=== PATIENT | male | born 1960 | race Caucasian/White ===

== ENCOUNTER 2019-03-23 08:39 | Day surgery (SDC) | payer BC ==
[2019-03-22 09:27] VITALS: BMI 37.5
[2019-03-23] MEDS ORDERED: BACITRACIN 15 GM TUBE TOPICAL OINTMENT ONE (10:57)
[2019-03-23] MEDS ORDERED: BUPIVACAINE HCL/PF 0.5% (5 MG/ML) 30 ML VIAL IJ ONE ×2 (10:57→10:58)
[2019-03-23] MEDS ORDERED: LIDOCAINE HCL 1%, 10 MG/ML (20ML VIAL) ONE (10:57)
[2019-03-23] MEDS ORDERED: MIDAZOLAM HCL 2 MG/2 ML SINGLE DOSE VIAL ONE ×2 (11:00→11:13)
[2019-03-23] MEDS ORDERED: PROPOFOL 20 ML ONE (11:12)
[2019-03-23] MEDS ORDERED: ceFAZolin SODIUM 1 GM VIAL ONE (11:12)
[2019-03-23] MEDS ORDERED: ceFAZolin SODIUM 1 GM VIAL IVPB ONE (11:14)
[2019-03-23] MEDS ORDERED: BACITRACIN 15 GM TUBE TOPICAL OINTMENT TP ONE (11:44)
[2019-03-23] MEDS ORDERED: oxyCODONE HCL 5 MG TABLET PO PRN (12:00)
[2019-03-23] MEDS ORDERED: DEXTROSE 5%-0.45% SALINE 1,000 ML IV SCH (12:00)
--- NOTE | 2019-03-23 12:02 | OP ---
Operative Note - Note: Operative Date: 03/23/19 Pre-Operative Diagnosis: left hydrocele Operation: left hydrocelectomy Findings: left hydrocele Post-Operative Diagnosis: Same as Pre-op Surgeon: Sandor Zhou Anesthesia: General Specimens Removed: hydrocele sac Operative Report Dictated: Yes
[2019-03-23] MEDS ORDERED: ONDANSETRON 4 MG/2 ML VIAL IVPUSH PRN (13:28)
[2019-03-23] MEDS ORDERED: ACETAMINOPHEN 1000 MG/100 ML VIAL (NON FORMULARY) IVPB ONE (13:30)
[2019-03-23] MEDS ORDERED: LACTATED RINGERS SOLUTION 1,000 ML IV SCH (13:30)
[2019-03-23] MEDS ORDERED: ACETAMINOPHEN INJECTION 100 ML IVPB ONE (13:35)
--- NOTE | 2019-03-23 14:26 | OP ---
DATE OF OPERATION: 03/23/2019 PREOPERATIVE DIAGNOSIS: Left hydrocele. POSTOPERATIVE DIAGNOSIS: Left hydrocele. PROCEDURE: Left hydrocelectomy. SURGEON: Sandor Zhou MD INDICATIONS: Patient is a 58-year-old male with a large left hydrocele. He was taken to the OR for hydrocelectomy. Risks, benefits, and alternatives were discussed including the risk of bleeding, infection, hematoma formation, recurrence of hydrocele. DESCRIPTION OF PROCEDURE: After informed consent was obtained, patient taken to the OR, placed supine on the operating table. Cardiac monitoring was administered. Spinal anesthetic was given. The scrotum was prepped and draped in standard surgical fashion. Approximately 4-cm left hemiscrotal incision was created with a No. 15-blade. The dartos layers were incised until tunica vaginalis was identified. The testicle with the tunica vaginalis was then delivered into the wound. The tunica vaginalis was excised and a large amount of clear yellow hydrocele fluid was drained. Hydrocele sac was then excised in its entirety and sent to pathology for analysis. The edges of the sac were then cauterized and everted. At this point then, the testicle was then placed back into its normal anatomic position in the scrotum. The dartos layer was reapproximated with interrupted chromic suture, and the skin was approximated with interrupted chromic suture in a vertical mattress fashion. Patient awoken from anesthesia and transferred to the recovery room in stable condition. There were no complications. Estimated blood loss was minimal. Robin [id number]
[2019-03-23 17:07] VITALS: BP 150/89; PULSE 70; TEMP 98.4
--- NOTE | 2019-03-29 15:50 | PATH ---
Surgical Pathology Report Patient Name: ANTONIO EMMANUEL [facility]. Rec. #: [id number] /Age/Gender: 1960 (Age: 58) / M Account: [id number] Location: [facility] SURGICAL Taken: 03/23/2019 Received: 03/23/2019 Reported: 03/29/2019 Physicians: Sandor Zhou M.D. Specimen(s) Received LEFT HYDROCELE SAC Clinical History Left hydrocele Final Diagnosis HYDROCELE SAC, LEFT, HYDROCELECTOMY: HYDROCELE. Electronically Signed Rosie Cheatham M.D. Gross Description Received in formalin, labeled "left hydrocele sac" is a portion of rogers membranous tissue measuring 13 x 5.5 x 0.1 cm. Foundation Drill Operator Helper sections submitted in one cassette. JOSE R/03/23/2019 paco/03/23/2019
== END 2019-03-23 16:55 | disposition home or self-care (01) ==
LOC: JASU-SURG 08:39
PROVIDERS: ATTEND Urology
PROC: 0VB70ZZ Excision of Left Tunica Vaginalis, Open Approach (ICD-10-PCS; principal; 2019-03-23 10:00)
DX: N43.3 Hydrocele, unspecified (principal)
CPT/HCPCS: 88304-TC; 94760; J0131

== ENCOUNTER 2019-06-04 08:05 | Inpatient (IN) | payer BC ==
[2019-06-04 08:14] VITALS: BMI 37.5
--- NOTE | 2019-06-04 09:02 | PDOC ---
History of Present Illness - General Chief Complaint: Respiratory Stated Complaint: SENT BY DR WILKINSON Time Seen by Provider: 06/04/19 08:46 - History of Present Illness Initial Comments: 06/04/19 08:57 58 yo M with h/o HTN, CAD s/p stents, GERD who p/w SOB, cough. Patient reports worsening, unremitting, dry, non-productive cough x 2 weeks, and now productive cough x 1-2 days, with brown sputum production. Patient also reports intermittent palpitations x 2 weeks, with no identifiable triggers. Endorses Sandoval x 2 weeks. Denies chest pain. Symptoms not improved with 5 days of Prednisone, and Augmentin x 5 days. Pt. evaluated urgent care facility 06/03/19 , with abnml CXR. Reports diffuse abdominal distension x 1 month, with unremarkable colonoscopy/endoscopy x 3 weeks. Reports night sweats x 1 week ago. Patient denies CARDOZA, vision change, wheezing, orthopena, PND, leg swelling/pain, N /V, F,C, CP, urinary complaints, hematuria, BPR, abdominal pain, diarrhea, constipation, lightheadedness, weakness, sensory changes. PMHx: as noted above. Patient f/w Cardiology/Dr. Luo. Denies h/o PE/ DVT. ROS: as noted SHx: Denies Etoh, IVDA, tobacco use Allergies: NKDA Past History - Past Medical History Allergies/Adverse Reactions: Allergies Allergy/AdvReac Type Severity Reaction Status Date / Time No Known Allergies Allergy Verified 06/04/19 08:14 Home Medications: Ambulatory Orders Aspirin [ASA -] 81 mg PO DAILY 03/22/19 Atorvastatin Ca [Lipitor] 20 mg PO HS 03/22/19 Isosorbide Mononitrate [Isosorbide Mononitrate ER] 60 mg PO DAILY 03/22/19 Losartan/Hydrochlorothiazide [Losartan-Hctz 100-25 mg Tab] 1 each PO DAILY 03/22 Metoprolol Succinate 100 mg PO DAILY 03/22/19 Pantoprazole Sodium 40 mg PO DAILY 03/22/19 Sertraline HCl 25 mg PO DAILY 03/22/19 Cardiac Disorders: Yes (CAD) COPD: No GI Disorders: Yes (reflux) HTN: Yes Hypercholesterolemia: (preventative) - Surgical History Cardiac Surgery: Yes (2 cardiac stent 2013) - Psycho Social/Smoking Cessation Hx Smoking History: Never smoked Have you smoked in the past 12 months: No Hx Alcohol Use: No Drug/Substance Use Hx: No Substance Use Type: None Hx Substance Use Treatment: No Review of Systems - Review of Systems Comments:: 06/04/19 09:06 GENERAL/CONSTITUTIONAL: No fever or chills. No weakness. HEAD, EYES, EARS, NOSE AND THROAT: No change in vision. No ear pain or discharge. No sore throat. CARDIOVASCULAR: + SOB. No chest pain. RESPIRATORY: + SOB, cough. No wheezing, or hemoptysis. GASTROINTESTINAL: No nausea, vomiting, diarrhea or constipation. GENITOURINARY: No dysuria, frequency, or change in urination. MUSCULOSKELETAL: No joint or muscle swelling or pain. No neck or back pain. SKIN: No rash NEUROLOGIC: No headache, vertigo, loss of consciousness, or change in strength/ sensation. ENDOCRINE: No increased thirst. No abnormal weight change HEMATOLOGIC/LYMPHATIC: No anemia, easy bleeding, or history of blood clots. ALLERGIC/IMMUNOLOGIC: No hives or skin allergy. *Physical Exam - Vital Signs Last Vital Signs Temp Pulse Resp BP Pulse Ox 97 F L 89 20 127/88 92 L 06/04/19 08:10 06/04/19 08:10 06/04/19 08:10 06/04/19 08:10 06/04/19 08:10 - Physical Exam Comments: 06/04/19 09:06 GENERAL: Awake, alert, and fully oriented, in no acute distress HEAD: No signs of trauma, normocephalic, atraumatic EYES: PERRLA, EOMI, sclera anicteric, conjunctiva clear ENT: Auricles normal inspection, hearing grossly normal, nares patent, oropharynx clear without exudates. Moist mucosa NECK: Normal ROM, supple, no lymphadenopathy, JVD, or masses LUNGS: No distress, speaks full sentences, clear to auscultation bilaterally HEART: Regular rate and rhythm, normal S1 and S2, no murmurs, rubs or gallops, peripheral pulses normal and equal bilaterally. ABDOMEN: Soft, nontender, normoactive bowel sounds. No guarding, no rebound. No masses EXTREMITIES : Normal inspection, Normal range of motion, no edema. No clubbing or cyanosis NEUROLOGICAL: Cranial nerves II through XII grossly intact. Normal speech, normal gait, no focal sensorimotor deficits SKIN: Warm, Dry, normal turgor, no rashes or lesions noted ED Treatment Course - LABORATORY CBC & Chemistry Diagram: 06/04/19 08:55 06/04/19 08:55 - ADDITIONAL ORDERS Additional order review: 06/04/19 11:49 Josh Raymond Name: ANTONIO EMMANUEL DEPARTMENT OF RADIOLOGY Phys: Dashawn Radford RESIDENT : 1960 Age: 58 Sex: M [facility] Acct: [id number] Loc: [address] Exam Date: 06/04/19 Status: [place] [address] Unit Number: [id number] EXAM#: TYPE/EXAM: RESULT: [id number] CT/CHEST CTA Evaluate for a pulmonary embolus CT scan of the chest following intravenous contrast. A post intravenous contrast CT angiogram of the chest was performed utilizing pulmonary embolus protocol. Coronal/ sagittal reconstruction images were obtained. 96 cc of Omnipaque 350 was intravenously injected No prior is available for comparison No gross filling defect is seen within the main pulmonary artery and its proximal branches, bilaterally. The thoracic and visualized portion of the upper abdominal aorta is normally enhanced without evidence of aneurysmal dilatation or dissection. The heart is within normal limits in size. No gross mediastinal or hilar enlarged lymph nodes are identified. Evaluation of the lung demonstrates interstitial thickening, bilaterally with mild atelectatic changes and possible infiltrates in the right middle lobe. There is also interstitial thickening and fine nodularity in the right lower lobe that may represent infiltrates and less likely an infiltrative process. A moderate-size hiatus hernia is present. In included portion of the upper abdomen, there are 2 left renal simple cysts with the largest since upper pole measuring 3.3 cm. Visualized osseous structures appear intact. Impression: There is no evidence of a pulmonary embolus in the main pulmonary artery and its proximal branches , bilaterally. Atelectatic changes and probable infiltrates in the right middle lobe as well as interstitial thickening and fine nodularity in the right lower lobe likely infectious. Cannot rule out post inflammatory. A follow-up CT scan of the chest in 2-3 weeks is needed for further evaluation. Reported By: Rene Murphy MD 06/04/19 1131 Technologist: Manuel Lee Transcribed Date/Time: 06/04/19 1131 Fruit Farmworker: Rene Murphy Printed Date/Time: By: - RADIOLOGY Radiology Studies Ordered: Category Date Time Status CHEST PA & LAT [RAD] Stat Radiology 06/04/19 08:55 Ordered Medical Decision Making - Medical Decision Making 06/04/19 09:02 58 yo M with h/o HTN, CAD s/p stents, GERD who p/w SOB, Sandoval, cough x 3 weeks. 92 % O2 on RA, HR 97, vitals otherwise wnl, AF, A&Ox3. Physical exam notable for coarse lung sounds BL LL bases. ACS/VA r/o. R/o PNA. Low risk PE per Wells criteria. Will assess for CHF, asthma/COPD, pleural effusion, TB. Will reassess. ED Course: 06/04/19 10:06 EKG: NSR with absent CLARITZA, STD. Nml interval duration and axis. Nml R wave progression. + Q wave lead III. 06/04/19 10:08 Laboratory Tests 06/04/19 06/04/19 06/04/19 08:30 08:55 08:55 WBC 10.7 H Hgb 13.4 Hct 39.9 Plt Count 383 D ABG pH ABG pCO2 at Pt Temp ABG pO2 at Pt Temp ABG HCO3 BUN Creatinine Lactic Acid 1.1 Troponin I < 0.02 B-Natriuretic Peptide 06/04/19 06/04/19 08:55 09:19 WBC Hgb Hct Plt Count ABG pH 7.45 ABG pCO2 at Pt Temp 40.7 ABG pO2 at Pt Temp 119 H ABG HCO3 27.7 H BUN 17.2 Creatinine 0.9 Lactic Acid Troponin I B-Natriuretic Peptide 132.1 H 06/04/19 10:44 UA: Neg 06/04/19 11:22 Pt. endorsed to medicine, admitted teleDr. Benton. 06/04/19 11:49 CTA CHEST: mpression: There is no evidence of a pulmonary embolus in the main pulmonary artery and its proximal branches , bilaterally. Atelectatic changes and probable infiltrates in the right middle lobe as well as interstitial thickening and fine nodularity in the right lower lobe likely infectious. Cannot rule out post inflammatory. A follow-up CT scan of the chest in 2-3 weeks is needed for further evaluation. Discharge - Discharge Information Clinical Impression/Diagnosis: Hypoxia Condition: Stable - Admission Yes - Follow up/Referral - Patient Discharge Instructions - Post Discharge Activity
[2019-06-04 09:08] LABS: BASO % 0.5 % (0-2.0); HEMATOCRIT 39.9 % (35.4-49); HEMOGLOBIN 13.4 GM/dL (11.7-16.9); LYMPH % 15.7 % (8-40); MCH 25.2 pg (25.7-33.7); MCHC 33.5 g/dl (32.0-35.9); MEAN CELL VOLUME 75.1 fl (80-96); MEAN PLT VOLUME 8.3 fl (7.5-11.1); MONO % 9.1 % (3.8-10.2); NEUT % 67.7 % (42.8-82.8); PLATELET COUNT 383 K/MM3 (134-434); RBC 5.32 M/mm3 (4.00-5.60); RDW 17.6 % (11.9-15.9); WHITE BLOOD COUNT 10.7 K/mm3 (4.0-10.0)
[2019-06-04] MEDS: ALBUTEROL SO4 2.5/IPRATROPIUM 0.5 INH SOL 3 ML VIAL.NEB. NEB SCH ×5 (09:12→20:18)
[2019-06-04] MEDS ORDERED: ALBUTEROL SO4 2.5/IPRATROPIUM 0.5 INH SOL 3 ML VIAL.NEB. NEB ONE (09:17)
[2019-06-04 09:20] LABS: INR 1.26 (0.83-1.09); PROTHROMBIN TIME (PATIENT) 14.9 SEC (9.7-13.0)
[2019-06-04 09:36] LABS: ALBUMIN 3.5 g/dl (3.4-5.0); BILIRUBIN,TOTAL 0.4 mg/dL (0.2-1); BLOOD UREA NITROGEN 17.2 mg/dL (7-18); CALCIUM 9.1 mg/dL (8.5-10.1); CREATININE 0.9 mg/dL (0.55-1.3); N-TERMINAL BNP 132.1 pg/ml (5-125); POTASSIUM 3.7 mmol/L (3.5-5.1); TOT PROT 7.2 g/dl (6.4-8.2)
--- NOTE | 2019-06-04 09:41 | PDOC ---
Attending Attestation - Resident Resident Name: Dashawn Radford - ED Attending Attestation I have performed the following: I have examined & evaluated the patient, The case was reviewed & discussed with the resident, I agree w/resident's findings & plan, Exceptions are as noted - HPI HPI: 06/04/19 09:55 58y M with h/o htn, cad sp stents, gerd pw complaint of sob/cough. The patient notes he had history of sob/cough for the past 2 weeks, was initially dry but now productive of clear sputum. pt denies any fever/chlls, n/v, back pain, le swelling, hemoptysis. pt does endorse exertinoal sob/cp and pain when he coughs. pt went to urgent care several time, had a course of abx wihtou significant impovement. 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 No recent travel (went to [place] in january, but was fine until 2 weeks ago). The patient denies any orthopnea however states that he does feel have a lot of coughing when he is trying to sleep. Card Dr Hansen nonsmoker Physicl exam: GENERAL: The patient is awake, alert, and fully oriented, Nontoxic - in no acute distress. HEAD: Normocephalic, atraumatic. EYES: extraocular movements intact, sclera anicteric, conjunctiva clear. ENT: Normal voice, Moist mucous membranes. NECK: Normal range of motion, supple LUNGS: wheezing b/l diffusely (s/p alubterol) HEART: Regular rate and rhythm, normal S1 and S2 without murmur, rub or gallop. ABDOMEN: Soft, nontender, No guarding, no rebound. No CVA tenderness EXTREMITIES: Normal range of motion, no edema. NEUROLOGICAL: No facial assymetry, Normal speech, PSYCH: Normal mood, normal affect. SKIN: Warm, Dry, normal turgor, The vital signs reviewed the patient was noted to be hypoxic to 92 on room air which is new for the patient ddx -consider possible pneumonia, bronchitis, acs, CHF, COPD/asthma however patient has no history of such We will obtain blood work, obtain CT of the chest Patient was given albuterol for his wheezing and short of breath Will reassess - Physicial Exam PE: 06/04/19 12:24 see above - Medical Decision Making 06/04/19 12:[address] noted for atelectasis, no clinical suggestion of pna (w.o fever, leukocytosis), no pe will admit for further management of bronchitis/hypoxia Heart Score/ECG Review - ECG Impressions Comment:: 06/04/19 11:14 Twelve-lead EKG was performed and reviewed by me. There is normal sinus rhythm with a normal rate. Rate of 83 The axis is normal. The intervals are normal. There is normal R wave progression There are no ST or T wave abnormalities. Impression: Normal twelve-lead EKG
[2019-06-04 09:52] LABS: ARTERIAL BLOOD GAS PCO2 40.7 mmHg (35-45); ARTERIAL BLOOD GAS PO2 119 mmHg (80-100); ARTERIAL BLOOD GAS pH 7.45 (7.35-7.45)
[2019-06-04 09:53] LABS: ALLENS TEST POSITIVE; ARTERIAL BLD GAS O2 SATURATION 98.1 % (95-98); ARTERIAL BLOOD GAS BASE EXCESS 3.7 meq/l (-2-2)
[2019-06-04] MEDS ORDERED: SODIUM CHLORIDE 1,000 ML IV STA (10:08)
[2019-06-04 10:10] LABS: PH,URINE 6.5 (5.0-8.0); URINE APPEARANCE CLEAR; URINE BILIRUBIN NEGATIVE (NEGATIVE); URINE COLOR YELLOW; URINE GLUCOSE (UA) NEGATIVE (NEGATIVE); URINE KETONE NEGATIVE (NEGATIVE); URINE LEUK ESTERASE NEGATIVE (NEGATIVE); URINE NITRITE NEGATIVE (NEGATIVE); URINE PROTEIN NEGATIVE (NEGATIVE)
--- NOTE | 2019-06-04 10:56 | CON.CARD ---
Consult Consult Specialty:: Cardiology Referred by:: Dr. Anaya Reason for Consultation:: SOB - History of Present Illness Chief Complaint: SOB and dry cough History of Present Illness: 58M w/ CAD s/p remote h/o PCI and chronic stable angina (anginal equivalent = BOWLES), chronic diastolic dysfx and mild chronic diastolic CHF, obesity, HTN, GERD and depression. Called my service last night stating that he has been "sick " for 2 weeks with URI. Has been seen in urgent care several times: few courses of oral abx (currently Augmentin) and a recent short course of oral steroids. Not improving. Still w/ dry cough, worse at night, SOB and sweats. 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 He was referred to ER for further evaluation last evening but he did not come last night, arrived this morning. In ER, noted to have expiratory wheezing and was relatively hypoxic with sat of 92-94% room air. ABG looks ok but done while receiving neb and supp O2 (amount of O2 cannot be confirmed). Labs look ok with normal cardiac enzymes, BNP. Vitals o/w stable. He is alert and oriented in no distress in ER, at bedside. Denies edema, chest pain. + orthopnea. Of note, cardiac cath was repeated about 1-2 months ago for his persistent anginal sx; medical Rx was recommended as there were no lesions amenable to PCI. He was prescribed Ranexa but did not take it, afraid of the possible side effects. - History Source History Provided By: Patient, Medical Record Limitations to Obtaining History: No Limitations - Past Medical History DAIRY SCIENTIST: No: Alzheimer's, CVA, Dementia, Migraine, Multiple Sclerosis, Peripheral Neuropathy, Parkinson's, Seizure, Syncope, TIA, Vertigo, Other Cardio/Vascular: Yes: CAD, CHF, HTN Pulmonary: No: Asthma, Bronchitis, Cancer, COPD, O2 Dependent, Pneumonia, Previously Intubated, Pulmonary Embolus, Pulmonary Fibrosis, Sleep Apnea, Other Gastrointestinal: Yes: GERD. No: Ascites, Cancer, Constipation, Crohn's Disease , Diverticulitis, Diverticulosis, Esophageal Varices, Gastritis, GI Bleed, Hemorrhoids, Hiatal Hernia, Inflamatory Bowel Disease, Irritable Bowel Disease, Pancreatitis, Peptic Ulcer Disease, Ulcerative Colitis, Other Hepatobiliary: No: Cirrhosis, Cholelithiasis, Cholecystitis, Choledocholithiasis , Hepatitis A, Hepatitis B, Hepatitis C, Other Renal/: No: Renal Failure, Renal Inusuff, BPH, Cancer, Hematuria, Hemodialysis , Neurogenic Bladder, Renal Calculi, UTI, Other Heme/Onc: No: Anemia, B12 Deficiency, Bleeding Disorder, Cancer, Current Chemotherapy, Current Radiation Therapy, Hemochromatosis, Hypercoaguable State, Myeloproliferative Synd, Sickle Cell Disease, Sickle Cell Trait, Thrombocytopenia, Other Infectious Disease: No: AIDS, C-Diff, Herpes Zoster, HIV, MRSA, STD's, Tuberculosis, VREF, Other Psych: Yes: Anxiety, Depression Musculoskeletal: No: Bursitis, Chronic low back pain, Hemiparesis, Hemiplegia, Osteoarthritis, Paraplegia, Other Rheumatology: No: Fibromyalgia, Gout, Lupus, Rheumatoid Arthritis, Sarcoidosis, Vasculitis, Other ENT: No: Allergic Rhinitis, Sinusitis, Other Endocrine: No: [place]'s Disease, Sterling's Disease, Diabetes Insipidus, Diabetes Mellitus, Hyperparathyroidism, Hyperthyroidism, Hypothyroidism, Osteopenia, SIADH, Other Dermatology: No: Basal Cell, Cellulitis, Eczema, Melanoma, Psoriasis, Squamous Cell, Other - Past Surgical History Additional Surgical History: cath and PCI - Alcohol/Substance Use Hx Alcohol Use: No - Smoking History Smoking history: Never smoked Have you smoked in the past 12 months: No - Social History Usual Living Arrangement: With Spouse History of Recent Travel: No Home Medications - Allergies Allergies/Adverse Reactions: Allergies Allergy/AdvReac Type Severity Reaction Status Date / Time No Known Allergies Allergy Verified 06/04/19 08:14 - Home Medications Home Medications: Ambulatory Orders Aspirin [ASA -] 81 mg PO DAILY 03/22/19 Atorvastatin Ca [Lipitor] 20 mg PO HS 03/22/19 Isosorbide Mononitrate [Isosorbide Mononitrate ER] 60 mg PO DAILY 03/22/19 Losartan/Hydrochlorothiazide [Losartan-Hctz 100-25 mg Tab] 1 each PO DAILY 03/22 Metoprolol Succinate 100 mg PO DAILY 03/22/19 Pantoprazole Sodium 40 mg PO DAILY 03/22/19 Sertraline HCl 25 mg PO DAILY 03/22/19 Family Medical History Family History: Unremarkable (not pertinent to this presentation) Review of Systems Findings/Remarks: see HPI - Review of Systems Constitutional: reports: Night Sweats Eyes: reports: No Symptoms HENT: reports: No Symptoms Neck: reports: No Symptoms Cardiovascular: reports: Shortness of Breath Respiratory: reports: Cough (non-productive.), Exercise Intolerance, SOB on Exertion, Wheezing Gastrointestinal: reports: No Symptoms Genitourinary: reports: No Symptoms Breasts: reports: No Symptoms Reported Musculoskeletal: reports: No Symptoms Integumentary: reports: No Symptoms Neurological: reports: No Symptoms Endocrine: reports: No Symptoms Hematology/Lymphatic: reports: No Symptoms Psychiatric: reports: No Symptoms - Risk Factors Known Risk Factors: Yes: Hypertension, Other (cad) Vital Signs: Vital Signs Temperature 98.6 F 06/04/19 10:02 Pulse Rate 96 H 06/04/19 10:02 Respiratory Rate 18 06/04/19 10:02 Blood Pressure 141/87 06/04/19 10:02 O2 Sat by Pulse Oximetry (%) 95 06/04/19 10:02 Constitutional: Yes: No Distress Eyes: Yes: Conjunctiva Clear HENT: Yes: Atraumatic Respiratory: Yes: Other (bilateral expiratory wheezing: anterior and posterior) Gastrointestinal: Yes: Soft, Abdomen, Obese Cardiovascular: Yes: Regular Rate and Rhythm JVD: No Carotid Bruit: No PMI: Non-Displaced Heart Sounds: Yes: S1, S2 (no S3) Edema: No Peripheral Pulses WNL: Yes Integumentary: Yes: WNL Neurological: Yes: Alert, Oriented ...Motor Strength: WNL - Other Data Labs, Other Data: CBC, BMP 06/04/19 08:55 06/04/19 08:55 INR, PTT INR 1.26 (0.83-1.09) H 06/04/19 08:55 Troponin, BNP 06/04/19 06/04/19 08:55 08:55 Troponin I < 0.02 B-Natriuretic Peptide 132.1 H Troponin, BNP 06/04/19 06/04/19 08:55 08:55 Troponin I < 0.02 B-Natriuretic Peptide 132.1 H NSR, no acute ST changes Prior Cardiac Procedures: Cardiac Catheterization, PTCA with Stent Ejection Fraction %: LVEF > or = 40 % Imaging - Results Cat Scan: Pending EKG: Image Reviewed Assessment/Plan IMP: Probably asthmatic bronchitis, most likely viral etiology Hypoxia/wheezing in setting above Known CAD s/p remote PCI with chronic, stable angina (manifested as BOWLES and chest pressure on stairs/hills) Hypertension, with chronic diastolic dysfx (normal BNP here, no edema) REC: 1. Planned for chest CTA to r/o PE, viral PNA, atypical PNA; less likely CHF. 2. Case d/w pulmonary, evaluation pending. Will likely need to complete current course of Augmenting and additional course of steroids +/- atypical coverage. 3. Hold on Lasix for now and review CT. 4. If CT is negative for PE or large consolidation then can be discharged after Pulm eval for outpatient treatment and follow up. 5. Advised patient to begin Ranexa 500mg daily for 1st week, then titrate to 500mg BID for treatment of chronic stable angina which is not amenable to PCI. 6. Continue all other cardiac meds.
[2019-06-04] MEDS ORDERED: ALBUTEROL SO4 0.083% IH SOL 2.5 MG/3 ML VIAL.NEB. NEB PRN (12:30)
--- NOTE | 2019-06-04 12:43 | HP ---
CHIEF COMPLAINT:dyspnea on exertion PCP: HISTORY OF PRESENT ILLNESS: Patient is a 58 year old male with past medical history of CAD s/p remote h/o PCI (5 years ago), chronic stable angina, chronic diastolic CHF, obesity, HTN, GERD and depression, presented to the ED due to persistent cough and shortness of breath that started 2 weeks ago. Patient reported he started experiencing nonproductive cough and nasal congestion about 2 weeks ago. At that time, he was in the middle of taking Penicillin for a tooth extraction done a few days prior. Patient denies any fever, chills, headache, chest pain, shortness of breath. He denies nay recent travel or sick contacts. He went to urgent care where he was prescribed Prednisone which he took for 5 days and to complete the antibiotic course for 7 days. Four days ago, due to persistent cough and now with dyspnea on exertion, patient went back to urgent care where he was prescribed Augmentin for 10 days. He was advised to come back to urgent care in 2-3 days if symptoms persist. Two days ago, he went to urgent care where a chest xray was done and patient was told to follow up with his clinical pharmacy manager or come to the ED due to "heart failure" seen on CXR. Patient consulted Dr. Hansen and was advised to come to the ED. At the ED, Chest CTA was done and patient was noted to be saturating at the low 90s on room air. He denies fevers, chills, headache, dizziness, chest pain, palpitations, abdominal pain, diarrhea, urinary symptoms. ER course was notable for: (1)Duonebs x4 (2)Chest CTA: no pulmonary embolism in the main pulmonary artery and its proximl branches, bilaterally. Atelectatic changes and probable infiltrates in the right middle lobe, as well as interstitial thickening and fine nodularity in right lower lobe likely infectious. Cannot rule out post-inflammatory changes. (3) Recent Travel:denies PAST MEDICAL HISTORY: CAD s/p remote h/o PCI chronic stable angina chronic diastolic CHF obesity HTN GERD depression PAST SURGICAL HISTORY: PCI (5 years ago) Hydrocele repair Social History: Smoking:denies Alcohol:denies Drugs: denies Allergies No Known Allergies Allergy (Verified 06/04/19 08:14) HOME MEDICATIONS: Home Medications Medication Instructions Recorded Aspirin [ASA -] 81 mg PO DAILY 03/22/19 Atorvastatin Ca [Lipitor] 20 mg PO HS 03/22/19 Isosorbide Mononitrate [Isosorbide 60 mg PO DAILY 03/22/19 Mononitrate ER] Losartan/Hydrochlorothiazide 1 each PO DAILY 03/22/19 [Losartan-Hctz 100-25 mg Tab] Metoprolol Succinate 100 mg PO DAILY 03/22/19 Pantoprazole Sodium 40 mg PO DAILY 03/22/19 Sertraline HCl 25 mg PO DAILY 03/22/19 REVIEW OF SYSTEMS CONSTITUTIONAL: Absent: fever, chills, diaphoresis, generalized weakness, malaise, loss of appetite, weight change HEENT: Absent: rhinorrhea, nasal congestion, throat pain, throat swelling, difficulty swallowing, mouth swelling, ear pain, eye pain, visual changes CARDIOVASCULAR: Absent: chest pain, syncope, palpitations, irregular heart rate, lightheadedness , peripheral edema RESPIRATORY: cough, dyspnea with exertion Absent: shortness of breath, orthopnea, wheezing, stridor, hemoptysis GASTROINTESTINAL: Absent: abdominal pain, abdominal distension, nausea, vomiting, diarrhea, constipation, melena, hematochezia GENITOURINARY: Absent: dysuria, frequency, urgency, hesitancy, hematuria, flank pain, genital pain MUSCULOSKELETAL: Absent: myalgia, arthralgia, joint swelling, back pain, neck pain SKIN: Absent: rash, itching, pallor HEMATOLOGIC/IMMUNOLOGIC: Absent: easy bleeding, easy bruising, lymphadenopathy, frequent infections ENDOCRINE: Absent: unexplained weight gain, unexplained weight loss, heat intolerance, cold intolerance NEUROLOGIC: Absent: headache, focal weakness or paresthesias, dizziness, unsteady gait, seizure, mental status changes, bladder or bowel incontinence PSYCHIATRIC: Absent: anxiety, depression, suicidal or homicidal ideation, hallucinations. PHYSICAL EXAMINATION Vital Signs - 24 hr 06/04/19 06/04/19 06/04/19 08:10 09:09 10:02 Temperature 97 F L 98.6 F Pulse Rate 89 Pulse Rate [ 96 H Apical] Respiratory 20 18 Rate Blood Pressure 127/88 Blood Pressure 141/87 [Right Arm] O2 Sat by Pulse 92 L 94 L 95 Oximetry (%) GENERAL: Awake, alert, and fully oriented, on 2L NC. HEAD: Normal with no signs of trauma. EYES: PERRLA, EOMI, sclera anicteric, conjunctiva clear. EARS, NOSE, THROAT: Moist mucous membranes. NECK: Normal range of motion, supple. LUNGS: +scattered wheezes bilaterally, +bibasilar crackles R>L HEART: Regular rate and rhythm, normal S1 and S2 without murmur. ABDOMEN: Soft, nontender, not distended, normoactive bowel sounds. MUSCULOSKELETAL: Normal range of motion at all joints. UPPER EXTREMITIES: 2+ pulses, warm, well-perfused. LOWER EXTREMITIES: 2+ pulses, warm, well-perfused. No peripheral edema. NEUROLOGICAL: Cranial nerves II-XII intact. Normal speech. Normal gait. PSYCHIATRIC: Cooperative. Good eye contact. Appropriate mood and affect. SKIN: Warm, dry, normal turgor, no rashes or lesions noted. Laboratory Results - last 24 hr 06/04/19 06/04/19 06/04/19 08:30 08:55 08:55 WBC 10.7 H RBC 5.32 Hgb 13.4 Hct 39.9 MCV 75.1 L MCH 25.2 L MCHC 33.5 RDW 17.6 H Plt Count 383 D MPV 8.3 Absolute Neuts (auto) 7.2 Neutrophils % 67.7 Lymphocytes % 15.7 Monocytes % 9.1 Eosinophils % 7.0 H Basophils % 0.5 Nucleated RBC % 0 PT with INR INR Anticoagulation Therapy Puncture Site ABG pH ABG pCO2 at Pt Temp ABG pO2 at Pt Temp ABG HCO3 ABG O2 Sat (Measured) ABG O2 Content ABG Base Excess Rodney Test O2 Delivery Device Oxygen Flow Rate Vent Mode Vent Rate Mechanical Rate Pressure Support Vent Sodium Potassium Chloride Carbon Dioxide Anion Gap BUN Creatinine Est GFR (CKD-EPI)AfAm Est GFR (CKD-EPI)NonAf Random Glucose Lactic Acid 1.1 Calcium Total Bilirubin AST ALT Alkaline Phosphatase Creatine Kinase 264 Creatine Kinase Index 0.7 CK-MB (CK-2) 1.9 Troponin I < 0.02 B-Natriuretic Peptide Total Protein Albumin Urine Color Urine Appearance Urine pH Ur Specific [place] Urine Protein Urine Glucose (UA) Urine Ketones Urine Blood Urine Nitrite Urine Bilirubin Urine Urobilinogen Ur Leukocyte Esterase 06/04/19 06/04/19 06/04/19 08:55 08:55 09:19 WBC RBC Hgb Hct MCV MCH MCHC RDW Plt Count MPV Absolute Neuts (auto) Neutrophils % Lymphocytes % Monocytes % Eosinophils % Basophils % Nucleated RBC % PT with INR 14.90 H INR 1.26 H Anticoagulation Therapy No Result Required. Puncture Site No Result Required. ABG pH 7.45 ABG pCO2 at Pt Temp 40.7 ABG pO2 at Pt Temp 119 H ABG HCO3 27.7 H ABG O2 Sat (Measured) 98.1 H ABG O2 Content 17.3 ABG Base Excess 3.7 H Rodney Test Positive O2 Delivery Device No Result Required. Oxygen Flow Rate No Result Required. Vent Mode No Result Required. Vent Rate No Result Required. Mechanical Rate No Result Required. Pressure Support Vent No Result Required. Sodium 142 Potassium 3.7 Chloride 104 Carbon Dioxide 34 H Anion Gap 4 L BUN 17.2 Creatinine 0.9 Est GFR (CKD-EPI)AfAm 109.50 Est GFR (CKD-EPI)NonAf 94.48 Random Glucose 96 Lactic Acid Calcium 9.1 Total Bilirubin 0.4 AST 22 ALT 33 Alkaline Phosphatase 85 Creatine Kinase Creatine Kinase Index CK-MB (CK-2) Troponin I B-Natriuretic Peptide 132.1 H Total Protein 7.2 Albumin 3.5 Urine Color Urine Appearance Urine pH Ur Specific [place] Urine Protein Urine Glucose (UA) Urine Ketones Urine Blood Urine Nitrite Urine Bilirubin Urine Urobilinogen Ur Leukocyte Esterase 06/04/19 09:56 WBC RBC Hgb Hct MCV MCH MCHC RDW Plt Count MPV Absolute Neuts (auto) Neutrophils % Lymphocytes % Monocytes % Eosinophils % Basophils % Nucleated RBC % PT with INR INR Anticoagulation Therapy Puncture Site ABG pH ABG pCO2 at Pt Temp ABG pO2 at Pt Temp ABG HCO3 ABG O2 Sat (Measured) ABG O2 Content ABG Base Excess Rodney Test O2 Delivery Device Oxygen Flow Rate Vent Mode Vent Rate Mechanical Rate Pressure Support Vent Sodium Potassium Chloride Carbon Dioxide Anion Gap BUN Creatinine Est GFR (CKD-EPI)AfAm Est GFR (CKD-EPI)NonAf Random Glucose Lactic Acid Calcium Total Bilirubin AST ALT Alkaline Phosphatase Creatine Kinase Creatine Kinase Index CK-MB (CK-2) Troponin I B-Natriuretic Peptide Total Protein Albumin Urine Color Yellow Urine Appearance Clear Urine pH 6.5 Ur Specific [place] 1.030 Urine Protein Negative Urine Glucose (UA) Negative Urine Ketones Negative Urine Blood Negative Urine Nitrite Negative Urine Bilirubin Negative Urine Urobilinogen 1.0 Ur Leukocyte Esterase Negative ASSESSMENT/PLAN: Patient is a 58 year old male with past medical history of CAD s/p remote h/o PCI (5 years ago), chronic stable angina, chronic diastolic CHF, obesity, HTN, GERD and depression, presented to the ED due to persistent cough and shortness of breath that started 2 weeks ago. #Community acquired pneumonia -Chest CT: Atelectatic changes and probable infiltrates in the right middle lobe -Pulmonology (Dr. Brown) consulted. Recommendations appreciated. -IV Ceftriaxone and Iv Azithromycin daily -Duonebs RQID and albuterol nebs PRN -Supplemental oxygen to keep SpO2 >90% -Short course of Prednisone 40mg daily -urine Legionella and strep -blood cultures pending #Hx of CAD -Cardiology (Dr. Hansen) consulted. REcommendations appreciated. -Hold Lasix for now -Advised patient to begin Ranexa for chronic stable angina -Continue metoprolol, ASA and Lipitor #HTN -Continue home Metoprolol, Losartan #Chronic diastolic CHF -hold Lasix for now as per cardiolgogy #GERD -Continue home Protonix 40mg daily #Depression -Continue home Sertraline 25mg #FEN -Not on any standing fluids -Electrolytes wnl, routine bmp monitoring -Sodium restricted diet #Prophylaxis -Lovenox 40mg sq daily #Disposition -full code -admit to med surg Visit type - Emergency Visit Emergency Visit: Yes ED Registration Date: 06/04/19 Care time: The patient presented to the Emergency Department on the above date and was hospitalized for further evaluation of their emergent condition. - New Patient This patient is new to me today: Yes Date on this admission: 06/04/19 - Critical Care Critical Care patient: No ATTENDING PHYSICIAN STATEMENT I saw and evaluated the patient. I reviewed the resident's note and discussed the case with the resident. I agree with the resident's findings and plan as documented. SUBJECTIVE: OBJECTIVE: ASSESSMENT AND PLAN:
--- NOTE | 2019-06-04 13:50 | CON.PULM ---
Consult Consult Specialty:: PULMONARY Referred by:: DAMIEN Reason for Consultation:: COUGH/PNEUMONIA - History of Present Illness Chief Complaint: COUGH History of Present Illness: 58y M with h/o htn, cad sp stents, gerd pw complaint of sob/cough. The patient notes he had history of sob/cough for the past 2 weeks, was initially dry but now productive of clear sputum. pt denies any fever/chlls, n/v, back pain, le swelling, hemoptysis. pt does endorse exertinoal sob/cp and pain when he coughs. pt went to urgent care several time, had a course of abx wihtou significant impovement. pt went to urgent care yesterday and had anohter xray and was referred to his bitumastic applier. No recent travel (went to [place] in january, but was fine until 2 weeks ago). The patient denies any orthopnea however states that he does feel have a lot of coughing when he is trying to sleep. - History Source History Provided By: Patient, Family Member, Medical Record Limitations to Obtaining History: No Limitations - Past Medical History [employer]: No: Alzheimer's, CVA, Dementia, Migraine, Multiple Sclerosis, Peripheral Neuropathy, Parkinson's, Seizure, Syncope, TIA, Vertigo, Other Cardio/Vascular: Yes: CAD, CHF, HTN Pulmonary: No: Asthma, Bronchitis, Cancer, COPD, O2 Dependent, Pneumonia, Previously Intubated, Pulmonary Embolus, Pulmonary Fibrosis, Sleep Apnea, Other Gastrointestinal: Yes: GERD. No: Ascites, Cancer, Constipation, Crohn's Disease , Diverticulitis, Diverticulosis, Esophageal Varices, Gastritis, GI Bleed, Hemorrhoids, Hiatal Hernia, Inflamatory Bowel Disease, Irritable Bowel Disease, Pancreatitis, Peptic Ulcer Disease, Ulcerative Colitis, Other Hepatobiliary: No: Cirrhosis, Cholelithiasis, Cholecystitis, Choledocholithiasis , Hepatitis A, Hepatitis B, Hepatitis C, Other Renal/: No: Renal Failure, Renal Inusuff, BPH, Cancer, Hematuria, Hemodialysis , Neurogenic Bladder, Renal Calculi, UTI, Other Infectious Disease: No: AIDS, C-Diff, Herpes Zoster, HIV, MRSA, STD's, Tuberculosis, VREF, Other Psych: Yes: Anxiety, Depression Musculoskeletal: No: Bursitis, Chronic low back pain, Hemiparesis, Hemiplegia, Osteoarthritis, Paraplegia, Other Rheumatology: No: Fibromyalgia, Gout, Lupus, Rheumatoid Arthritis, Sarcoidosis, Vasculitis, Other ENT: No: Allergic Rhinitis, Sinusitis, Other Endocrine: No: [place]'s Disease, Savita's Disease, Diabetes Insipidus, Diabetes Mellitus, Hyperparathyroidism, Hyperthyroidism, Hypothyroidism, Osteopenia, SIADH, Other Dermatology: No: Basal Cell, Cellulitis, Eczema, Melanoma, Psoriasis, Squamous Cell, Other - Past Surgical History Additional Surgical History: cath and PCI - Alcohol/Substance Use Hx Alcohol Use: No - Smoking History Smoking history: Never smoked Have you smoked in the past 12 months: No - Social History Usual Living Arrangement: With Spouse History of Recent Travel: No Home Medications - Allergies Allergies/Adverse Reactions: Allergies Allergy/AdvReac Type Severity Reaction Status Date / Time No Known Allergies Allergy Verified 06/04/19 08:14 - Home Medications Home Medications: Ambulatory Orders Aspirin [ASA -] 81 mg PO DAILY 03/22/19 Atorvastatin Ca [Lipitor] 20 mg PO HS 03/22/19 Isosorbide Mononitrate [Isosorbide Mononitrate ER] 60 mg PO DAILY 03/22/19 Losartan/Hydrochlorothiazide [Losartan-Hctz 100-25 mg Tab] 1 each PO DAILY 03/22 Metoprolol Succinate 100 mg PO DAILY 03/22/19 Pantoprazole Sodium 40 mg PO DAILY 03/22/19 Sertraline HCl 25 mg PO DAILY 03/22/19 Family Medical History Family History: Unremarkable Review of Systems - Review of Systems Constitutional: reports: Chills, Night Sweats. denies: Fever Eyes: denies: Blurred Vision HENT: denies: Difficult Swallowing Neck: denies: Decreased ROM Cardiovascular: denies: Chest Pain Respiratory: reports: Cough, Exercise Intolerance, SOB on Exertion, Wheezing. denies: Hemoptysis, Orthopnea Physical Exam Vital Sings: Vital Signs Temperature 98.6 F 06/04/19 13:08 Pulse Rate 84 06/04/19 13:08 Respiratory Rate 18 06/04/19 13:08 Blood Pressure 126/65 06/04/19 13:08 O2 Sat by Pulse Oximetry (%) 95 06/04/19 10:02 Constitutional: Yes: Calm Eyes: Yes: EOM Intact HENT: Yes: Normocephalic Neck: Yes: Trachea Midline Cardiovascular: Yes: S1, S2 Respiratory: Yes: Rhonchi ( ), Wheezes Gastrointestinal: Yes: Normal Bowel Sounds, Abdomen, Obese Edema: No Labs: CBC, BMP 06/04/19 08:55 06/04/19 08:55 ABG Results ABG pH 7.45 (7.35-7.45) 06/04/19 09:19 ABG pCO2 at Pt Temp 40.7 mmHg (35-45) 06/04/19 09:19 ABG pO2 at Pt Temp 119 mmHg (80-100) H 06/04/19 09:19 ABG HCO3 27.7 mmol/L (22-27) H 06/04/19 09:19 ABG O2 Sat (Measured) 98.1 % (95-98) H 06/04/19 09:19 ABG O2 Content 17.3 % vol 06/04/19 09:19 ABG Base Excess 3.7 meq/l (-2-2) H 06/04/19 09:19 Imaging - Results Chest X-ray: Report Reviewed, Image Reviewed Cat Scan: Report Reviewed, Image Reviewed Problem List - Problems (1) Pneumonia Code(s): J18.9 - PNEUMONIA, UNSPECIFIED ORGANISM (2) History of heart artery stent Code(s): Z95.5 - PRESENCE OF CORONARY ANGIOPLASTY IMPLANT AND GRAFT (3) CAD (coronary artery disease) Code(s): I25.10 - ATHSCL HEART DISEASE OF [place] CORONARY ARTERY W/O ANG PCTRS Assessment/Plan LIKELY CABP RIGHT MIDDLE LOBE CAD/PCI STENTS RECENT UPPER/LOWER ENDOSCOPY ABS/SHORT COURSE STEROIDS/O2/BRONCHODILATORS ANTICIPATE EARLY DISCHARGE WILL FOLLOW Diana WALKER MD
--- NOTE | 2019-06-04 14:40 | PN ---
Teaching Attending Note Name of Resident: Mitzy Carroll ATTENDING PHYSICIAN STATEMENT I saw and evaluated the patient. I reviewed the resident's note and discussed the case with the resident. I agree with the resident's findings and plan as documented. SUBJECTIVE: Cough/SOB. No fever. No CP/palpitations. OBJECTIVE: Afebrile, Hemodynamically Stable. Last Vital Signs Temp Pulse Resp BP Pulse Ox 98.6 F 84 18 126/65 95 06/04/19 13:08 06/04/19 13:08 06/04/19 13:08 06/04/19 13:08 06/04/19 10:02 HEENT - Atramatic, normocephalic Heart - S1, S2, RRR Lungs - good air entry. few crackles on R. Occassional wheeze. Abdomen - Soft, non-tender. Bowel sounds normal. Extremities - Edema+, no calf tenderness. Neuro - AAO x 3. Tone/Power normal all 4 extremities Laboratory Results - last 24 hr 06/04/19 06/04/19 06/04/19 08:30 08:55 08:55 WBC 10.7 H RBC 5.32 Hgb 13.4 Hct 39.9 MCV 75.1 L MCH 25.2 L MCHC 33.5 RDW 17.6 H Plt Count 383 D MPV 8.3 Absolute Neuts (auto) 7.2 Neutrophils % 67.7 Lymphocytes % 15.7 Monocytes % 9.1 Eosinophils % 7.0 H Basophils % 0.5 Nucleated RBC % 0 PT with INR INR Anticoagulation Therapy Puncture Site ABG pH ABG pCO2 at Pt Temp ABG pO2 at Pt Temp ABG HCO3 ABG O2 Sat (Measured) ABG O2 Content ABG Base Excess Rodney Test O2 Delivery Device Oxygen Flow Rate Vent Mode Vent Rate Mechanical Rate Pressure Support Vent Sodium Potassium Chloride Carbon Dioxide Anion Gap BUN Creatinine Est GFR (CKD-EPI)AfAm Est GFR (CKD-EPI)NonAf Random Glucose Lactic Acid 1.1 Calcium Total Bilirubin AST ALT Alkaline Phosphatase Creatine Kinase 264 Creatine Kinase Index 0.7 CK-MB (CK-2) 1.9 Troponin I < 0.02 B-Natriuretic Peptide Total Protein Albumin Urine Color Urine Appearance Urine pH Ur Specific [place] Urine Protein Urine Glucose (UA) Urine Ketones Urine Blood Urine Nitrite Urine Bilirubin Urine Urobilinogen Ur Leukocyte Esterase 06/04/19 06/04/19 06/04/19 08:55 08:55 09:19 WBC RBC Hgb Hct MCV MCH MCHC RDW Plt Count MPV Absolute Neuts (auto) Neutrophils % Lymphocytes % Monocytes % Eosinophils % Basophils % Nucleated RBC % PT with INR 14.90 H INR 1.26 H Anticoagulation Therapy No Result Required. Puncture Site No Result Required. ABG pH 7.45 ABG pCO2 at Pt Temp 40.7 ABG pO2 at Pt Temp 119 H ABG HCO3 27.7 H ABG O2 Sat (Measured) 98.1 H ABG O2 Content 17.3 ABG Base Excess 3.7 H Rodney Test Positive O2 Delivery Device No Result Required. Oxygen Flow Rate No Result Required. Vent Mode No Result Required. Vent Rate No Result Required. Mechanical Rate No Result Required. Pressure Support Vent No Result Required. Sodium 142 Potassium 3.7 Chloride 104 Carbon Dioxide 34 H Anion Gap 4 L BUN 17.2 Creatinine 0.9 Est GFR (CKD-EPI)AfAm 109.50 Est GFR (CKD-EPI)NonAf 94.48 Random Glucose 96 Lactic Acid Calcium 9.1 Total Bilirubin 0.4 AST 22 ALT 33 Alkaline Phosphatase 85 Creatine Kinase Creatine Kinase Index CK-MB (CK-2) Troponin I B-Natriuretic Peptide 132.1 H Total Protein 7.2 Albumin 3.5 Urine Color Urine Appearance Urine pH Ur Specific [place] Urine Protein Urine Glucose (UA) Urine Ketones Urine Blood Urine Nitrite Urine Bilirubin Urine Urobilinogen Ur Leukocyte Esterase 06/04/19 09:56 WBC RBC Hgb Hct MCV MCH MCHC RDW Plt Count MPV Absolute Neuts (auto) Neutrophils % Lymphocytes % Monocytes % Eosinophils % Basophils % Nucleated RBC % PT with INR INR Anticoagulation Therapy Puncture Site ABG pH ABG pCO2 at Pt Temp ABG pO2 at Pt Temp ABG HCO3 ABG O2 Sat (Measured) ABG O2 Content ABG Base Excess Rodney Test O2 Delivery Device Oxygen Flow Rate Vent Mode Vent Rate Mechanical Rate Pressure Support Vent Sodium Potassium Chloride Carbon Dioxide Anion Gap BUN Creatinine Est GFR (CKD-EPI)AfAm Est GFR (CKD-EPI)NonAf Random Glucose Lactic Acid Calcium Total Bilirubin AST ALT Alkaline Phosphatase Creatine Kinase Creatine Kinase Index CK-MB (CK-2) Troponin I B-Natriuretic Peptide Total Protein Albumin Urine Color Yellow Urine Appearance Clear Urine pH 6.5 Ur Specific [place] 1.030 Urine Protein Negative Urine Glucose (UA) Negative Urine Ketones Negative Urine Blood Negative Urine Nitrite Negative Urine Bilirubin Negative Urine Urobilinogen 1.0 Ur Leukocyte Esterase Negative Current Medications Generic Name Dose Route Start Last Admin Trade Name Joselin PRN Reason Stop Dose Admin Albuterol Sulfate 1 amp 06/04/19 12:30 Ventolin 0.083% Nebulizer Soln - NEB Q4H PRN SHORT OF BREATH/WHEEZING Albuterol/Ipratropium 1 amp 06/04/19 16:00 Duoneb - NEB RQID [facility] Aspirin 81 mg 06/05/19 10:00 Asa - PO DAILY [facility] Atorvastatin Calcium 20 mg 06/04/19 22:00 Lipitor - PO HS [facility] Enoxaparin Sodium 40 mg 06/05/19 10:00 Lovenox - SQ DAILY [facility] HCTZ/Losartan Potassium 2 tab 06/05/19 10:00 Hyzaar - PO DAILY [facility] Azithromycin 500 mg in 250 mls @ 250 mls/hr 06/04/19 13:45 Zithromax 500mg Ivpb (Pre-Docked) IVPB DAILY [facility] Ceftriaxone Sodium 1 gm/ 50 mls @ 100 mls/hr 06/04/19 13:45 Dextrose IVPB DAILY [facility] Protocol Isosorbide Mononitrate 60 mg 06/05/19 10:00 Imdur - PO DAILY [facility] Metoprolol Succinate 100 mg 06/05/19 10:00 Toprol Xl - PO DAILY [facility] Pantoprazole Sodium 40 mg 06/05/19 10:00 Protonix - PO DAILY [facility] Prednisone 40 mg 06/05/19 10:00 Deltasone - PO DAILY [facility] Sertraline HCl 25 mg 06/05/19 10:00 Zoloft - PO DAILY [facility] Home Medications Medication Instructions Recorded Aspirin [ASA -] 81 mg PO DAILY 03/22/19 Atorvastatin Ca [Lipitor] 20 mg PO HS 03/22/19 Isosorbide Mononitrate [Isosorbide 60 mg PO DAILY 03/22/19 Mononitrate ER] Losartan/Hydrochlorothiazide 1 each PO DAILY 03/22/19 [Losartan-Hctz 100-25 mg Tab] Metoprolol Succinate 100 mg PO DAILY 03/22/19 Pantoprazole Sodium 40 mg PO DAILY 03/22/19 Sertraline HCl 25 mg PO DAILY 03/22/19 ASSESSMENT AND PLAN: 58 year old male with history of HTN, HLD, CAD s/p remote h/o PCI (5 years ago) , chronic stable angina s/p recent MALE MODEL showing no modifyable lesions, chronic diastolic CHF, obesity, GERD and Depression, presented with 2 weeks history of cough, SOB, nasal congestion, failed out-patient course of prednisone and Augmentin (which she was taking s/p tooth extraction incidentally). No fever/ chills/sputum/hemoptysis. CTA Chest - no PE, Likely infiltrates RML, RLL. 1. CAP Afebrile, Hemodnamically Stable. Ceftriaxone. Azithromycin Urine legionella/Strep Ag Sputum/Blood cx. Flu/RSV Seen by Cardiology - no ACS Seen by Pulmonary - recommend Steroids. 2. Hx CAD s/p PCI s/p Stent (5 years ago) No ACS currently. Recent Cath showed no lesions requiring intervention Recommended to start Ranexa by Cardiology 3. HTN - Continue Metoprolol, Losartan/HCTZ, ISMN 4. Chronic Diastolic CHF - Stable. No evidence of decompensation. Lasix held as per Cardio. To discuss with Cardio recommendations re: utility/safety of home meds HCTZ and Lasix. 5. GERD - Continue PPI. 6. Depression - Continue Sertraline 7. HLD - Continue Statin. DVT Px - Lovenox SQ
[2019-06-04] MEDS: AZITHROMYCIN IVPB 500 MG/250 ML BAG IVPB SCH (14:41)
[2019-06-04] MEDS ORDERED: cefTRIAXone SODIUM 1 GM VIAL ONE (15:48)
[2019-06-04] MEDS ORDERED: DEXTROSE 5%-WATER - 50 ML IVPB ONE (15:48)
[2019-06-04] MEDS: CEFTRIAXONE 1 GM in DEXTROSE 5%-WATER - 50 ML IVPB SCH (15:53)
[2019-06-04] MEDS: ATORVASTATIN CA 20 MG TABLET (FP) PO SCH ×2 (21:21→21:25)
[2019-06-04] MEDS ORDERED: MELATONIN 5 MG TABLETS PO ONE (22:27)
[2019-06-05] MEDS ORDERED: ACETAMINOPHEN 650 MG/20.3 ML ORAL SOLUTION (CUPS) PO PRN (07:04)
[2019-06-05] MEDS: ALBUTEROL SO4 2.5/IPRATROPIUM 0.5 INH SOL 3 ML VIAL.NEB. NEB SCH ×2 (07:20→11:46)
[2019-06-05 08:16] LABS: ALBUMIN 2.8 g/dl (3.4-5.0); BILIRUBIN,TOTAL 0.4 mg/dL (0.2-1); BLOOD UREA NITROGEN 10.6 mg/dL (7-18); CALCIUM 8.5 mg/dL (8.5-10.1); CREATININE 0.9 mg/dL (0.55-1.3); POTASSIUM 3.8 mmol/L (3.5-5.1); TOT PROT 5.9 g/dl (6.4-8.2)
[2019-06-05 08:31] LABS: BASO % 0.6 % (0-2.0); EOS % 10.2 % (0-4.5); HEMOGLOBIN 11.4 GM/dL (11.7-16.9); MCHC 33.9 g/dl (32.0-35.9); MEAN CELL VOLUME 76.6 fl (80-96); MEAN PLT VOLUME 8.1 fl (7.5-11.1); NEUT % 58.2 % (42.8-82.8); PLATELET COUNT 300 K/MM3 (134-434); RBC 4.37 M/mm3 (4.00-5.60); RDW 17.1 % (11.9-15.9); WHITE BLOOD COUNT 7.1 K/mm3 (4.0-10.0)
[2019-06-05 08:38] LABS: HEMATOCRIT 33.5 % (35.4-49)
--- NOTE | 2019-06-05 08:44 | PN ---
Teaching Attending Note Name of Resident: Al Gaming ATTENDING PHYSICIAN STATEMENT I saw and evaluated the patient. I reviewed the resident's note and discussed the case with the resident. I agree with the resident's findings and plan as documented. SUBJECTIVE: still feel cough remained afebrile OBJECTIVE: Vital Signs Temperature 99.2 F 06/05/19 05:55 Pulse Rate 83 06/05/19 05:55 Respiratory Rate 20 06/05/19 05:55 Blood Pressure 127/67 06/05/19 05:55 O2 Sat by Pulse Oximetry (%) 95 06/04/19 10:02 Middle aged man not in distress HEEENT:Mm moist no anemia, PERRLA, EOMI NECK: No JVD no Bruit CHEST: Rt sided crepts CVS: S1S2 IR no m/g/r ABD: No distention, non tender Bs + EXT:No edema feet QUARRY WORKER:AOX3 non focal CBC, BMP 06/05/19 06:20 06/05/19 06:20 Active Medications Acetaminophen (Tylenol Oral Solution -) 650 mg PO Q6H PRN PRN Reason: FEVER Albuterol Sulfate (Ventolin 0.083% Nebulizer Soln -) 1 amp NEB Q4H PRN PRN Reason: SHORT OF BREATH/WHEEZING Albuterol/Ipratropium (Duoneb -) 1 amp NEB RQID [facility] Last Admin: 06/05/19 07:20 Dose: 1 amp Aspirin (Asa -) 81 mg PO DAILY [facility] Atorvastatin Calcium (Lipitor -) 20 mg PO HS [facility] Last Admin: 06/04/19 21:25 Dose: Not Given Enoxaparin Sodium (Lovenox -) 40 mg SQ DAILY [facility] Fluticasone Propionate (Flonase -) 1 spray NS DAILY [facility] HCTZ/Losartan Potassium (Hyzaar -) 2 tab PO DAILY [facility] Azithromycin (Zithromax 500mg Ivpb (Pre-Docked)) 500 mg in 250 mls @ 250 mls/ hr IVPB DAILY [facility] Last Admin: 06/04/19 14:41 Dose: 250 mls/hr Ceftriaxone Sodium 1 gm/ (Dextrose) 50 mls @ 100 mls/hr IVPB DAILY [facility]; Protocol Last Admin: 06/04/19 15:53 Dose: 100 mls/hr Isosorbide Mononitrate (Imdur -) 60 mg PO DAILY [facility] Metoprolol Succinate (Toprol Xl -) 100 mg PO DAILY [facility] Pantoprazole Sodium (Protonix -) 40 mg PO DAILY [facility] Prednisone (Deltasone -) 40 mg PO DAILY [facility] Sertraline HCl (Zoloft -) 25 mg PO DAILY [facility] ASSESSMENT AND PLAN:58 year old male with history of HTN, HLD, CAD s/p remote h/ o PCI (5 years ago), 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, chronic diastolic CHF, obesity, GERD and Depression, presented with 2 weeks history of cough, SOB, nasal congestion, failed out-patient course of prednisone and Augmentin , Ct chest shows Rt ML infiltrate Problem List - Problems (1) Pneumonia Assessment/Plan: Cont Ceftriaxone and azithromycine, agrees with Pulmonary can be switch to Po either augmentin + azithro total 7 days of abx or Levofloxacin F/U 6 mminutes walk to evalute desaturation ion exertion, , so far all cultures are -ve Problems reviewed: Yes Code(s): J18.9 - PNEUMONIA, UNSPECIFIED ORGANISM (2) Reactive airway disease Assessment/Plan: Cont Po Prednisone and Albuterol MDI Problems reviewed: Yes Code(s): J45.909 - UNSPECIFIED ASTHMA, UNCOMPLICATED (3) HTN (hypertension) Assessment/Plan: Cont home meds Problems reviewed: Yes Code(s): I10 - ESSENTIAL (PRIMARY) HYPERTENSION (4) CAD (coronary artery disease) Assessment/Plan: Stable recent cath no new obstructive lesion , normal EKG and trop I F/U cardiology recommendations. Problems reviewed: Yes Code(s): I25.10 - ATHSCL HEART DISEASE OF [place] CORONARY ARTERY W/O ANG PCTRS (5) Obesity (BMI 30-39.9) Assessment/Plan: Nutrition consult as out patient Problems reviewed: Yes Code(s): E66.9 - OBESITY, UNSPECIFIED (6) Hypercholesteremia Assessment/Plan: cont Statin Problems reviewed: Yes Code(s): E78.00 - PURE HYPERCHOLESTEROLEMIA, UNSPECIFIED
[2019-06-05] MEDS ORDERED: cefTRIAXone SODIUM 1 GM VIAL ONE (09:11)
[2019-06-05] MEDS ORDERED: DEXTROSE 5%-WATER - 50 ML IVPB ONE (09:11)
[2019-06-05] MEDS: CEFTRIAXONE 1 GM in DEXTROSE 5%-WATER - 50 ML IVPB SCH (09:39)
--- NOTE | 2019-06-05 09:55 | EKG ---
Test Reason : Blood Pressure : / mmHG Vent. Rate : 092 BPM Atrial Rate : 092 BPM P-R Int : 150 ms QRS Dur : 094 ms QT Int : 344 ms P-R-T Axes : 040 065 016 degrees QTc Int : 425 ms NORMAL SINUS RHYTHM NORMAL ECG WHEN COMPARED WITH ECG OF 04-JUN-2019 09:58, NO SIGNIFICANT CHANGE WAS FOUND Confirmed by KARON JERONIMO MD ([id number]) on 06/05/2019 9:55:44 AM Referred By: REMINGTON WILKINSON Confirmed By:KARON JERONIMO MD
[2019-06-05] MEDS ORDERED: ISOSORBIDE MONONITRATE 60 MG TAB.SR.24H (FP) PO SCH (10:00)
[2019-06-05] MEDS ORDERED: LOSARTAN 50MG/HCTZ 12.5MG 1 TAB (FP) PO SCH (10:00)
[2019-06-05] MEDS ORDERED: ASPIRIN 81 MG CHEWABLE TABLETS PO SCH (10:00)
[2019-06-05] MEDS ORDERED: SERTRALINE HCL 25 MG TABLET (FP) PO SCH (10:00)
[2019-06-05] MEDS ORDERED: ENOXAPARIN NA (PORCINE) 40 MG/0.4 ML DISP.SYRIN SQ SCH (10:00)
[2019-06-05] MEDS ORDERED: FLUTICASONE PROP 0.05% 16 GM NASAL SPRAY NS SCH (10:00)
[2019-06-05] MEDS ORDERED: predniSONE 20 MG TABLET (UD) PO SCH (10:00)
[2019-06-05] MEDS ORDERED: PANTOPRAZOLE 40 MG TABLET (FP) PO SCH (10:00)
--- NOTE | 2019-06-05 10:10 | EKG ---
Test Reason : Blood Pressure : / mmHG Vent. Rate : 083 BPM Atrial Rate : 083 BPM P-R Int : 154 ms QRS Dur : 090 ms QT Int : 364 ms P-R-T Axes : 021 054 003 degrees QTc Int : 427 ms NORMAL SINUS RHYTHM NORMAL ECG NO PREVIOUS ECGS AVAILABLE Confirmed by KARON JERONIMO MD ([id number]) on 06/05/2019 10:10:12 AM Referred By: Confirmed By:KARON JERONIMO MD
--- NOTE | 2019-06-05 10:19 | PN ---
Progress Note (short form) - Note Progress Note: PULMONARY Denies shortness of breath. No fevers. +cough with brown sputum. Vital Signs Period Temp Pulse Resp BP Sys/Garcia Pulse Ox Last 24 Hr 98.4 F-99.2 F 79-85 18-21 115-138/65-79 Gen: NAD at rest Heart: RRR Lung: decreased breath sounds at the bases Abd: soft, nontender Ext: no edema CBC, BMP 06/05/19 06:20 06/05/19 06:20 Active Medications Acetaminophen (Tylenol Oral Solution -) 650 mg PO Q6H PRN PRN Reason: FEVER Albuterol Sulfate (Ventolin 0.083% Nebulizer Soln -) 1 amp NEB Q4H PRN PRN Reason: SHORT OF BREATH/WHEEZING Albuterol/Ipratropium (Duoneb -) 1 amp NEB RQID [facility] Last Admin: 06/05/19 07:20 Dose: 1 amp Aspirin (Asa -) 81 mg PO DAILY [facility] Last Admin: 06/05/19 09:44 Dose: Not Given Atorvastatin Calcium (Lipitor -) 20 mg PO HS [facility] Last Admin: 06/04/19 21:25 Dose: Not Given Enoxaparin Sodium (Lovenox -) 40 mg SQ DAILY [facility] Last Admin: 06/05/19 09:48 Dose: Not Given Fluticasone Propionate (Flonase -) 1 spray NS DAILY [facility] HCTZ/Losartan Potassium (Hyzaar -) 2 tab PO DAILY [facility] Last Admin: 06/05/19 09:44 Dose: Not Given Azithromycin (Zithromax 500mg Ivpb (Pre-Docked)) 500 mg in 250 mls @ 250 mls/ hr IVPB DAILY [facility] Last Admin: 06/04/19 14:41 Dose: 250 mls/hr Ceftriaxone Sodium 1 gm/ (Dextrose) 50 mls @ 100 mls/hr IVPB DAILY [facility]; Protocol Last Admin: 06/05/19 09:39 Dose: 100 mls/hr Isosorbide Mononitrate (Imdur -) 60 mg PO DAILY [facility] Last Admin: 06/05/19 09:45 Dose: Not Given Metoprolol Succinate (Toprol Xl -) 100 mg PO DAILY [facility] Last Admin: 06/05/19 09:45 Dose: Not Given Pantoprazole Sodium (Protonix -) 40 mg PO DAILY [facility] Last Admin: 06/05/19 09:47 Dose: 40 mg Prednisone (Deltasone -) 40 mg PO DAILY [facility] Last Admin: 06/05/19 09:47 Dose: 40 mg Sertraline HCl (Zoloft -) 25 mg PO DAILY [facility] Last Admin: 06/05/19 09:47 Dose: 25 mg A/P Pneumonia - Community Acquired CAD HTN Hyperlipidemia Anemia - can change antibiotics to PO and complete 7 day course total - short course of prednisone 5 days - O2 as needed - f/u CXR in 6-8 weeks to ensure resolution of infiltrate - DVT prophylaxis
[2019-06-05] MEDS: AZITHROMYCIN IVPB 500 MG/250 ML BAG IVPB SCH (10:39)
[2019-06-05 11:25] VITALS: BP 146/76; TEMP 98.9
[2019-06-05 12:41] VITALS: PULSE 105
--- NOTE | 2019-06-05 12:53 | DS ---
Physical Exam: SUBJECTIVE: Patient seen and examined OBJECTIVE: Vital Signs Period Temp Pulse Resp BP Sys/Garcia Pulse Ox Last 24 Hr 98.4 F-99.2 F 79-105 18-21 115-146/65-79 90-93 PHYSICAL EXAM GENERAL: The patient is awake, alert, and fully oriented, in no acute distress. HEAD: Normal with no signs of trauma. EYES: PERRL, extraocular movements intact, sclera anicteric, conjunctiva clear. ENT: Ears normal, nares patent, oropharynx clear without exudates, moist mucous membranes. NECK: Trachea midline, full range of motion, supple. LUNGS: Breath sounds equal, clear to auscultation bilaterally, no wheezes, no crackles, no accessory muscle use. HEART: Regular rate and rhythm, S1, S2 without murmur, rub or gallop. ABDOMEN: Soft, nontender, nondistended, normoactive bowel sounds, no guarding, no rebound, no hepatosplenomegaly, no masses. EXTREMITIES: 2+ pulses, warm, well-perfused, no edema. NEUROLOGICAL: Cranial nerves II through XII grossly intact. Normal speech, gait not observed. PSYCH: Normal mood, normal affect. SKIN: Warm, dry, normal turgor, no rashes or lesions noted. LABS Laboratory Results - last 24 hr 06/04/19 06/05/19 06/05/19 17:10 00:05 06:20 WBC 7.1 RBC 4.37 Hgb 11.4 L Hct 33.5 L D MCV 76.6 L MCH 26.0 MCHC 33.9 RDW 17.1 H Plt Count 300 D MPV 8.1 Absolute Neuts (auto) 4.1 Neutrophils % 58.2 Lymphocytes % 20.0 D Monocytes % 11.0 H Eosinophils % 10.2 H Basophils % 0.6 Nucleated RBC % 0 Sodium Potassium Chloride Carbon Dioxide Anion Gap BUN Creatinine Est GFR (CKD-EPI)AfAm Est GFR (CKD-EPI)NonAf Random Glucose Calcium Magnesium Total Bilirubin AST ALT Alkaline Phosphatase Total Protein Albumin TSH Influenza A (Rapid) Negative Influenza B (Rapid) Negative RSV Rapid Negative 06/05/19 06:20 WBC RBC Hgb Hct MCV MCH MCHC RDW Plt Count MPV Absolute Neuts (auto) Neutrophils % Lymphocytes % Monocytes % Eosinophils % Basophils % Nucleated RBC % Sodium 141 Potassium 3.8 Chloride 106 Carbon Dioxide 30 Anion Gap 5 L BUN 10.6 Creatinine 0.9 Est GFR (CKD-EPI)AfAm 109.50 Est GFR (CKD-EPI)NonAf 94.48 Random Glucose 98 Calcium 8.5 Magnesium 2.0 Total Bilirubin 0.4 AST 16 ALT 25 Alkaline Phosphatase 72 Total Protein 5.9 L Albumin 2.8 L TSH 0.84 Influenza A (Rapid) Influenza B (Rapid) RSV Rapid HOSPITAL COURSE: Date of Admission:06/04/19 Date of Discharge: 06/05/19 Minutes to complete discharge: 20 Discharge Summary Reason For Visit: HYPOXIA Current Active Problems CAD (coronary artery disease) (Acute) HTN (hypertension) (Acute) History of heart artery stent (Acute) Hypercholesteremia (Acute) Hypoxia (Acute) Obesity (BMI 30-39.9) (Acute) Pneumonia (Acute) Reactive airway disease (Acute) Condition: Stable - Instructions Diet, Activity, Other Instructions: You were evaluated in the hospital for shortness of breath. Imaging showed that you have a pneumonia. You were treated with intravenous antibiotics then transitioned to oral antibiotics. A manufacturing accountant evaluated you and recommended oral steroids(prednisone) Medications: - Prednisone[DELTASONE]: 40mg for 3 days(06/06/19 - 06/08/19) - Levofloxacin[LEVAQUIN]: 750mg for 5 days(06/06/19 -06/10/19) - Ranolazine[RANEXA]: --Please start regimen once levofloxacin is FINISHED --you have this prescription at home already --Take 500mg, once daily for 7days(06/11/19 - 06/17/19); then twice daily( and onwards) Follow-up with the following physicians below: - PCP(your own PCP or come to Dr Orlando's clinic): please discuss your recent hospitalization, and arrange for a follow-up chest x-ray in 6-8 weeks - Leather Heel Breaster(Dr Daniel Price): please follow-up after receiving a chest x-ray in 6-8weeks - Electronics Production Supervisor(Dr Hansen): please follow-up to discuss your Ranexa medication Additional Instructions: - diet: regular diet as tolerated - activity: regular activity as tolerated Please seek immediate medical evaluation or come to the Emergency Department if you experience: - severe, worsening cough - shortness of breath that impairs your ability to perform your daily activities Referrals: Guido Brown MD [Staff Physician] - Paras Hansen MD [Staff Physician] - Missael Shah MD [Staff Physician] - Disposition: HOME - Home Medications Comprehensive Discharge Medication List: Ambulatory Orders Aspirin [ASA -] 81 mg PO DAILY 03/22/19 Atorvastatin Ca [Lipitor] 20 mg PO HS 03/22/19 Isosorbide Mononitrate [Isosorbide Mononitrate ER] 60 mg PO DAILY 03/22/19 Losartan/Hydrochlorothiazide [Losartan-Hctz 100-25 mg Tab] 1 each PO DAILY 03/22 Metoprolol Succinate 100 mg PO DAILY 03/22/19 Pantoprazole Sodium 40 mg PO DAILY 03/22/19 Sertraline HCl 25 mg PO DAILY 03/22/19 Ranolazine [Ranolazine ER] 500 mg PO BID #30 tab 06/05/19 levoFLOXacin [Levaquin] 750 mg PO DAILY #5 tab 06/05/19 predniSONE [Deltasone -] 40 mg PO DAILY 3 Days #6 tablet 06/05/19 ATTENDING PHYSICIAN STATEMENT I saw and evaluated the patient. I reviewed the resident's note and discussed the case with the resident. I agree with the resident's findings and plan as documented. SUBJECTIVE: OBJECTIVE: ASSESSMENT AND PLAN:
--- NOTE | 2019-06-05 15:58 | PN ---
Progress Note (short form) - Note Progress Note: s: no chest pain, palps, dizziness, dyspnea Current Medications Acetaminophen (Tylenol Oral Solution -) 650 mg PO Q6H PRN PRN Reason: FEVER Albuterol Sulfate (Ventolin 0.083% Nebulizer Soln -) 1 amp NEB Q4H PRN PRN Reason: SHORT OF BREATH/WHEEZING Albuterol/Ipratropium (Duoneb -) 1 amp NEB RQID [facility] Last Admin: 06/05/19 11:46 Dose: 1 amp Aspirin (Asa -) 81 mg PO DAILY [facility] Last Admin: 06/05/19 09:44 Dose: Not Given Atorvastatin Calcium (Lipitor -) 20 mg PO HS [facility] Last Admin: 06/04/19 21:25 Dose: Not Given Enoxaparin Sodium (Lovenox -) 40 mg SQ DAILY [facility] Last Admin: 06/05/19 09:48 Dose: Not Given Fluticasone Propionate (Flonase -) 1 spray NS DAILY [facility] Last Admin: 06/05/19 10:39 Dose: 1 spray HCTZ/Losartan Potassium (Hyzaar -) 2 tab PO DAILY [facility] Last Admin: 06/05/19 09:44 Dose: Not Given Azithromycin (Zithromax 500mg Ivpb (Pre-Docked)) 500 mg in 250 mls @ 250 mls/ hr IVPB DAILY [facility] Last Admin: 06/05/19 10:39 Dose: 250 mls/hr Ceftriaxone Sodium 1 gm/ (Dextrose) 50 mls @ 100 mls/hr IVPB DAILY [facility]; Protocol Last Admin: 06/05/19 09:39 Dose: 100 mls/hr Isosorbide Mononitrate (Imdur -) 60 mg PO DAILY [facility] Last Admin: 06/05/19 09:45 Dose: Not Given Metoprolol Succinate (Toprol Xl -) 100 mg PO DAILY [facility] Last Admin: 06/05/19 09:45 Dose: Not Given Pantoprazole Sodium (Protonix -) 40 mg PO DAILY [facility] Last Admin: 06/05/19 09:47 Dose: 40 mg Prednisone (Deltasone -) 40 mg PO DAILY [facility] Last Admin: 06/05/19 09:47 Dose: 40 mg Sertraline HCl (Zoloft -) 25 mg PO DAILY [facility] Last Admin: 06/05/19 09:47 Dose: 25 mg Vital Signs Period Temp Pulse Resp BP Sys/Garcia Pulse Ox Last 24 Hr 98.4 F-99.2 F 79-105 18-21 115-146/66-79 90-93 Constitutional: Yes: No Distress Eyes: Yes: Conjunctiva Clear HENT: Yes: Atraumatic Respiratory: Yes: Other (bilateral expiratory wheezing: anterior and posterior) Gastrointestinal: Yes: Soft, Abdomen, Obese Cardiovascular: Yes: Regular Rate and Rhythm JVD: No Carotid Bruit: No PMI: Non-Displaced Heart Sounds: Yes: S1, S2 (no S3) Edema: No Neurological: Yes: Alert, Oriented no jaundice, diaphoresis not agitated NSR, no acute ST changes Prior Cardiac Procedures: Cardiac Catheterization, PTCA with Stent Ejection Fraction %: LVEF > or = 40 % Imaging - Results Cat Scan: Pending EKG: Image Reviewed Assessment/Plan IMP: Probably asthmatic bronchitis, most likely viral etiology Pneumonia Hypoxia/wheezing in setting above Known CAD s/p remote PCI with chronic, stable angina (manifested as BOWLES and chest pressure on stairs/hills) Hypertension, with chronic diastolic dysfunction REC: - CTA chest - no PE, +infiltrate c/w PNA, manage per pulm - Holding off Ranexa for now as he is on levaquin (both can prolong QTc) - will discuss with Dr. Hansen at follow up, currently chest pain free - Continue all other cardiac meds.
== END 2019-06-05 16:00 | disposition home or self-care (01) | DRG 194 ==
LOC: JER 08:05 → JERBED 10:06 → J6S 12:32
PROVIDERS: ATTEND Internal Medicine
DX: J18.9 Pneumonia, unspecified organism (principal); I50.32 Chronic diastolic (congestive) heart failure; K21.9 Gastro-esophageal reflux disease without esophagitis; I10 Essential (primary) hypertension; E66.9 Obesity, unspecified; Z68.37 Body mass index [BMI] 37.0-37.9, adult; I25.119 Atherosclerotic heart disease of native coronary artery with unspecified angina pectoris; F32.9 Major depressive disorder, single episode, unspecified; D64.9 Anemia, unspecified; J45.909 Unspecified asthma, uncomplicated; I11.0 Hypertensive heart disease with heart failure; E78.5 Hyperlipidemia, unspecified; Z95.5 Presence of coronary angioplasty implant and graft
CPT/HCPCS: 36415; 36600; 71275-TC; 80053; 81003; 82550; 82553; 82803; 83605; 83735; 83880; 84443; 84484; 85025; 85610; 87040; 87804; 87807; 87899; 93005; 93010; 94640; 94761; 99285-25; J7030